=== PATIENT | male | born 1950 | race Caucasian/White ===

== ENCOUNTER 2023-08-01 16:34 | Inpatient (IN) | payer MEDICARE ==
[~2023-08-01 16:34] MED LIST: Dofetilide 0.125 MG CAP PO SCH
[2023-08-01 17:39] LABS: #Basophils 0.1 10x3/uL (0.0-0.2); #Eosinphils 0.2 10x3/uL (0.0-0.5); #Monocytes 0.8 10x3/uL (0.0-1.1); #Neutrophils 8.9 10x3/uL (1.5-8.4); %Basophils 0.8 % (0.0-2.0); %Eosinophils 1.9 % (0.0-6.0); %Lymphocytes 7.5 % (18.0-47.0); %Monocytes 7.3 % (0.0-10.0); %Neutrophils 78.2 % (40.0-75.0); Hematocrit 34.3 % (38.8-50.0); Hemoglobin 11.3 g/dL (13.5-17.5); Mean Corpuscular HGB CONC 32.9 g/dL (32.0-36.0); Mean Corpuscular Hemoglobin 31.1 pg (27.0-33.0); Mean Corpuscular Volume 94.5 fl (81.2-95.1); Mean Platelet Volume 8.7 fl (7.4-10.4); Platelet Count 343 10x3/uL (150-450); RBC Distribution Width 13.5 % (11.5-14.5); Red Blood Cell (RBC) Count 3.63 10x6/uL (4.32-5.72); White Blood Cell (WBC) Count 11.4 10x3/uL (3.5-10.5)
[2023-08-01 17:48] LABS: PTT 34.1 sec (22.0-33.0); Prothrombin Time 11.2 sec (9.5-12.1)
[2023-08-01 17:54] LABS: ALT (SGPT) 19 U/L (8-55); AST (SGOT) 24 U/L (5-34); Albumin 3.9 g/dL (3.4-4.8); Alkaline Phosphatase 89 U/L (40-110); Anion Gap 14 mmol/L (10-20); BUN (Urea Nitrogen) 48 mg/dL (8.4-25.7); Bilirubin, Total 0.2 mg/dL (0.2-1.2); Calc. Creatinine Clearance 0 mL/min (70-130); Calcium 8.5 mg/dL (7.8-10.44); Carbon Dioxide 22 mmol/L (23-31); Chloride 105 mmol/L (98-107); Estimated GFR 38; Globulin 2.8 g/dL (2.4-3.5); Glucose 103 mg/dL (83-110); Potassium 5.1 mmol/L (3.5-5.1); Protein, Total 6.7 g/dL (5.8-8.1); Sodium 136 mmol/L (136-145)
[2023-08-01 18:01] LABS: Troponin I Less than 0.010 ng/mL (< 0.028)
[2023-08-01] MEDS ORDERED: Vancomycin 1 GM VIAL ONE (18:39)
[2023-08-01] MEDS ORDERED: Cefepime 1 GM VIAL ONE (18:39)
[2023-08-01] MEDS ORDERED: HYDROcodone/Acetaminophen 5/325 mg Tablet ONE (18:56)
[2023-08-01] MEDS ORDERED: Cefepime 2 GM VIAL ONE (19:41)
[2023-08-01] MEDS ORDERED: Calcium Carbonate 500 MG ChewTAB PO PRN (20:17)
[2023-08-01] MEDS ORDERED: traZODone HCl 50 MG TAB PO PRN (20:22)
[2023-08-01] MEDS ORDERED: Morphine 4 MG/ML VIAL ONE (21:12)
[2023-08-01] MEDS ORDERED: Enoxaparin 120 MG/0.8 ML SYRINGE SC ONE (23:27)
[2023-08-01] MEDS ORDERED: Morphine 2 MG/ML VIAL ONE (23:28)
[2023-08-02] MEDS ORDERED: HYDROcodone/Acetaminophen 5/325 mg Tablet ONE (03:32)
[2023-08-02] MEDS ORDERED: Dofetilide 0.125 MG CAP PO SCH (03:45)
[2023-08-02 03:55] LABS: #Basophils 0.1 10x3/uL (0.0-0.2); #Eosinphils 0.2 10x3/uL (0.0-0.5); #Monocytes 1.3 10x3/uL (0.0-1.1); #Neutrophils 11.2 10x3/uL (1.5-8.4); %Basophils 0.7 % (0.0-2.0); %Eosinophils 1.3 % (0.0-6.0); %Lymphocytes 5.8 % (18.0-47.0); %Monocytes 9.2 % (0.0-10.0); %Neutrophils 80.4 % (40.0-75.0); Hematocrit 34.1 % (38.8-50.0); Hemoglobin 11.3 g/dL (13.5-17.5); Mean Corpuscular HGB CONC 33.1 g/dL (32.0-36.0); Mean Corpuscular Hemoglobin 31.3 pg (27.0-33.0); Mean Corpuscular Volume 94.5 fl (81.2-95.1); Mean Platelet Volume 8.6 fl (7.4-10.4); Platelet Count 349 10x3/uL (150-450); RBC Distribution Width 13.2 % (11.5-14.5); Red Blood Cell (RBC) Count 3.61 10x6/uL (4.32-5.72); White Blood Cell (WBC) Count 13.9 10x3/uL (3.5-10.5)
[2023-08-02] MEDS: Enoxaparin 120 MG/0.8 ML SYRINGE SC SCH (04:12)
[2023-08-02] MEDS: Sodium Chloride 0.9% 1,000 ML IV SCH (04:12)
[2023-08-02 04:13] LABS: Anion Gap 13 mmol/L (10-20); BUN (Urea Nitrogen) 35 mg/dL (8.4-25.7); Calc. Creatinine Clearance 89 mL/min (70-130); Carbon Dioxide 21 mmol/L (23-31); Chloride 109 mmol/L (98-107); Estimated GFR 58; Glucose 112 mg/dL (83-110); Sodium 138 mmol/L (136-145)
[2023-08-02] MEDS: Morphine 2 MG/ML VIAL SLOW IVP SCH ×2 (04:13→08:42)
[2023-08-02] MEDS: HYDROcodone/Acetaminophen 5/325 mg Tablet PO PRN (04:14)
[2023-08-02] MEDS: Atorvastatin Calcium 20 MG TAB PO SCH ×2 (04:15→21:45)
[2023-08-02 04:21] LABS: CRP (Inflammatory) 6.59 mg/dL (= or < 0.5)
[2023-08-02] MEDS: Dofetilide 0.125 MG CAP PO SCH ×2 (05:55→21:44)
[2023-08-02] MEDS: Levothyroxine Sodium 50 MCG TAB PO SCH (05:55)
[2023-08-02 07:50] VITALS: BMI 41.0
[2023-08-02] MEDS: Carvedilol 3.125 MG TAB PO SCH (08:44)
[2023-08-02] MEDS: Cefepime 2 GM in Sodium Chloride 0.9% 100 ML IVPB SCH (09:11)
[2023-08-02] MEDS: Doxazosin 2 MG TAB PO SCH (09:15)
[2023-08-02] MEDS: Morphine 4 MG/ML VIAL SLOW IVP SCH (09:20)
[2023-08-02] MEDS: Vancomycin 1.5 GRAM/300 ML BAG 1.5 GM in Premix 1 BAG IVPB SCH (10:08)
[2023-08-02] MEDS: Morphine 4 MG/ML VIAL SLOW IVP PRN (11:08)
[2023-08-02] MEDS: Ondansetron PF 4 MG/2 ML Vial IVP PRN (11:08)
[2023-08-02] MEDS: FLU VACC QS2023(65UP)/MF59C/PF 60 MCG/0.5 ML SYRINGE IM ONE (13:34)
[2023-08-03] MEDS: HYDROcodone/Acetaminophen 5/325 mg Tablet PO PRN (02:38)
[2023-08-03 05:25] LABS: #Basophils 0.1 10x3/uL (0.0-0.2); #Eosinphils 0.3 10x3/uL (0.0-0.5); #Monocytes 1.2 10x3/uL (0.0-1.1); #Neutrophils 9.2 10x3/uL (1.5-8.4); %Basophils 0.7 % (0.0-2.0); %Eosinophils 2.4 % (0.0-6.0); %Lymphocytes 9.3 % (18.0-47.0); %Monocytes 10.1 % (0.0-10.0); %Neutrophils 74.6 % (40.0-75.0); Hematocrit 31.5 % (38.8-50.0); Hemoglobin 10.2 g/dL (13.5-17.5); Mean Corpuscular HGB CONC 32.4 g/dL (32.0-36.0); Mean Corpuscular Hemoglobin 30.5 pg (27.0-33.0); Mean Corpuscular Volume 94.3 fl (81.2-95.1); Mean Platelet Volume 8.4 fl (7.4-10.4); Platelet Count 318 10x3/uL (150-450); RBC Distribution Width 13.4 % (11.5-14.5); Red Blood Cell (RBC) Count 3.34 10x6/uL (4.32-5.72); White Blood Cell (WBC) Count 12.3 10x3/uL (3.5-10.5)
[2023-08-03 05:39] LABS: Anion Gap 13 mmol/L (10-20); BUN (Urea Nitrogen) 27 mg/dL (8.4-25.7); Calc. Creatinine Clearance 115 mL/min (70-130); Carbon Dioxide 23 mmol/L (23-31); Chloride 107 mmol/L (98-107); Estimated GFR 79; Glucose 103 mg/dL (83-110); Potassium 4.7 mmol/L (3.5-5.1); Sodium 138 mmol/L (136-145)
[2023-08-03] MEDS ORDERED: Polyethylene Glycol 3350 17 GM Packet PO PRN (09:26)
[2023-08-03] MEDS: Docusate 100 MG CAP PO SCH (20:32)
[2023-08-04] MEDS ORDERED: Lidocaine 2% 6 ML (Jelly) SYR TOP PRN (07:57)
[2023-08-04 08:45] LABS: Vancomycin, Trough 11.8 ug/mL
[2023-08-04] MEDS ORDERED: Apixaban 5 MG TAB PO SCH (09:00)
[2023-08-04] MEDS: Apixaban 5 MG TAB PO SCH (10:05)
[2023-08-04] MEDS: Sacubitril 24MG/Valsartan 26 MG TAB PO SCH (10:06)
[2023-08-04] MEDS ORDERED: Torsemide 20 MG TAB PO SCH (13:00)
[2023-08-05 08:55] LABS: #Basophils 0.1 10x3/uL (0.0-0.2); #Eosinphils 0.6 10x3/uL (0.0-0.5); #Monocytes 0.9 10x3/uL (0.0-1.1); %Basophils 0.8 % (0.0-2.0); %Eosinophils 4.9 % (0.0-6.0); %Lymphocytes 7.1 % (18.0-47.0); %Monocytes 7.3 % (0.0-10.0); Hematocrit 33.5 % (38.8-50.0); Hemoglobin 11.1 g/dL (13.5-17.5); Mean Corpuscular HGB CONC 33.1 g/dL (32.0-36.0); Mean Corpuscular Hemoglobin 31.1 pg (27.0-33.0); Mean Corpuscular Volume 93.8 fl (81.2-95.1); Mean Platelet Volume 8.8 fl (7.4-10.4); Platelet Count 376 10x3/uL (150-450); RBC Distribution Width 13.2 % (11.5-14.5); Red Blood Cell (RBC) Count 3.57 10x6/uL (4.32-5.72)
[2023-08-05 08:56] LABS: ALT (SGPT) 23 U/L (8-55); AST (SGOT) 33 U/L (5-34); Albumin 3.2 g/dL (3.4-4.8); Alkaline Phosphatase 68 U/L (40-110); Anion Gap 11 mmol/L (10-20); BUN (Urea Nitrogen) 20 mg/dL (8.4-25.7); Bilirubin, Total 0.3 mg/dL (0.2-1.2); Calc. Creatinine Clearance 131 mL/min (70-130); Calcium 9.1 mg/dL (7.8-10.44); Carbon Dioxide 26 mmol/L (23-31); Chloride 103 mmol/L (98-107); Estimated GFR 91; Globulin 3.4 g/dL (2.4-3.5); Glucose 96 mg/dL (83-110); Potassium 4.2 mmol/L (3.5-5.1); Protein, Total 6.6 g/dL (5.8-8.1); Sodium 136 mmol/L (136-145)
[2023-08-05] MEDS ORDERED: Mineral Oil PER (1 ML CHG) PO PRN (09:49)
[2023-08-05] MEDS: Torsemide 20 MG TAB PO SCH (09:57)
[2023-08-05] MEDS: Fluticasone Propionate Nasal Spray 16 gm Bottle NASAL SCH (09:59)
[2023-08-05] MEDS: Pseudoephedrine HCl 30 MG TAB PO PRN (10:18)
[2023-08-05] MEDS: Bisacodyl 5 MG TAB PO PRN (14:37)
[2023-08-05] MEDS: Senokot S 8.6-50 MG TAB PO PRN (14:37)
[2023-08-05] MEDS: Acetaminophen 325 MG TAB PO PRN (17:12)
[2023-08-06 03:51] LABS: Anion Gap 14 mmol/L (10-20); BUN (Urea Nitrogen) 26 mg/dL (8.4-25.7); Calc. Creatinine Clearance 106 mL/min (70-130); Calcium 8.9 mg/dL (7.8-10.44); Carbon Dioxide 26 mmol/L (23-31); Chloride 101 mmol/L (98-107); Estimated GFR 72; Glucose 111 mg/dL (83-110); Potassium 4.1 mmol/L (3.5-5.1); Sodium 137 mmol/L (136-145)
[2023-08-06 09:05] LABS: Vancomycin, Trough 16.8 ug/mL
[2023-08-06] MEDS: VANCOMYCIN 1.25 GM/250 ML BAG 1.25 GM in Premix 1 BAG IVPB SCH (11:20)
[2023-08-06] MEDS ORDERED: Bisacodyl 10 MG SUPP PR PRN (16:56)
[2023-08-06] MEDS: Milk Of Magnesia 30 ML UDCUP PO SCH (18:57)
[2023-08-06] MEDS: Dofetilide 0.25 MG CAP PO SCH (21:00)
[2023-08-06] MEDS: Methocarbamol 500 MG TAB PO SCH (21:01)
[2023-08-06] MEDS: traZODone HCl 50 MG TAB PO SCH (21:02)
[2023-08-07 04:18] LABS: Anion Gap 15 mmol/L (10-20); BUN (Urea Nitrogen) 33 mg/dL (8.4-25.7); Calc. Creatinine Clearance 96 mL/min (70-130); Calcium 8.9 mg/dL (7.8-10.44); Carbon Dioxide 26 mmol/L (23-31); Chloride 101 mmol/L (98-107); Estimated GFR 64; Glucose 108 mg/dL (83-110); Magnesium 2.1 mg/dL (1.6-2.6); Sodium 138 mmol/L (136-145)
[2023-08-07 04:23] LABS: #Basophils 0.1 10x3/uL (0.0-0.2); #Eosinphils 0.6 10x3/uL (0.0-0.5); #Neutrophils 10.1 10x3/uL (1.5-8.4); %Basophils 0.8 % (0.0-2.0); %Eosinophils 4.7 % (0.0-6.0); %Monocytes 7.6 % (0.0-10.0); %Neutrophils 76.2 % (40.0-75.0); Hematocrit 32.7 % (38.8-50.0); Hemoglobin 11.2 g/dL (13.5-17.5); Mean Corpuscular HGB CONC 34.3 g/dL (32.0-36.0); Mean Corpuscular Hemoglobin 31.8 pg (27.0-33.0); Mean Corpuscular Volume 92.9 fl (81.2-95.1); Mean Platelet Volume 8.9 fl (7.4-10.4); Platelet Count 418 10x3/uL (150-450); RBC Distribution Width 13.2 % (11.5-14.5); Red Blood Cell (RBC) Count 3.52 10x6/uL (4.32-5.72); White Blood Cell (WBC) Count 13.3 10x3/uL (3.5-10.5)
[2023-08-07 04:52] LABS: ALT (SGPT) 21 U/L (8-55); AST (SGOT) 26 U/L (5-34); Albumin 3.2 g/dL (3.4-4.8); Alkaline Phosphatase 81 U/L (40-110); Bilirubin, Direct 0.1 mg/dL (0.1-0.3); Bilirubin, Total 0.2 mg/dL (0.2-1.2); Protein, Total 6.6 g/dL (5.8-8.1)
[2023-08-07] MEDS: Doxazosin 2 MG TAB PO SCH (08:48)
[2023-08-08 04:07] LABS: #Basophils 0.1 10x3/uL (0.0-0.2); #Eosinphils 0.6 10x3/uL (0.0-0.5); #Neutrophils 9.7 10x3/uL (1.5-8.4); %Basophils 0.8 % (0.0-2.0); %Eosinophils 4.9 % (0.0-6.0); %Lymphocytes 8.1 % (18.0-47.0); %Monocytes 7.9 % (0.0-10.0); %Neutrophils 76.4 % (40.0-75.0); Hematocrit 32.2 % (38.8-50.0); Hemoglobin 10.6 g/dL (13.5-17.5); Mean Corpuscular HGB CONC 32.9 g/dL (32.0-36.0); Mean Corpuscular Volume 94.2 fl (81.2-95.1); Platelet Count 424 10x3/uL (150-450); RBC Distribution Width 13.3 % (11.5-14.5); Red Blood Cell (RBC) Count 3.42 10x6/uL (4.32-5.72); White Blood Cell (WBC) Count 12.7 10x3/uL (3.5-10.5)
[2023-08-08 04:09] LABS: Anion Gap 13 mmol/L (10-20); BUN (Urea Nitrogen) 41 mg/dL (8.4-25.7); Calc. Creatinine Clearance 80 mL/min (70-130); Calcium 8.9 mg/dL (7.8-10.44); Carbon Dioxide 27 mmol/L (23-31); Chloride 101 mmol/L (98-107); Estimated GFR 52; Glucose 112 mg/dL (83-110); Magnesium 2.2 mg/dL (1.6-2.6); Potassium 3.9 mmol/L (3.5-5.1); Sodium 137 mmol/L (136-145)
[2023-08-08 08:28] LABS: Vancomycin, Trough 20.2 ug/mL
[2023-08-08] MEDS ORDERED: Vancomycin 1 GM in Sodium Chloride 0.9% 250 ML 250 ML IVPB SCH (15:00)
[2023-08-08] MEDS: Amoxicillin/Potassium Clav 875 MG TAB PO SCH (21:59)
[2023-08-09 04:25] LABS: #Basophils 0.1 10x3/uL (0.0-0.2); #Eosinphils 0.7 10x3/uL (0.0-0.5); #Neutrophils 7.4 10x3/uL (1.5-8.4); %Basophils 0.9 % (0.0-2.0); %Eosinophils 6.6 % (0.0-6.0); %Lymphocytes 10.6 % (18.0-47.0); %Monocytes 9.7 % (0.0-10.0); %Neutrophils 70.1 % (40.0-75.0); Hematocrit 32.1 % (38.8-50.0); Hemoglobin 10.5 g/dL (13.5-17.5); Mean Corpuscular HGB CONC 32.7 g/dL (32.0-36.0); Mean Corpuscular Hemoglobin 30.6 pg (27.0-33.0); Mean Corpuscular Volume 93.6 fl (81.2-95.1); Mean Platelet Volume 8.8 fl (7.4-10.4); Platelet Count 421 10x3/uL (150-450); RBC Distribution Width 13.1 % (11.5-14.5); Red Blood Cell (RBC) Count 3.43 10x6/uL (4.32-5.72); White Blood Cell (WBC) Count 10.6 10x3/uL (3.5-10.5)
[2023-08-09 04:38] LABS: Anion Gap 13 mmol/L (10-20); BUN (Urea Nitrogen) 40 mg/dL (8.4-25.7); Calc. Creatinine Clearance 89 mL/min (70-130); Calcium 9.3 mg/dL (7.8-10.44); Carbon Dioxide 27 mmol/L (23-31); Chloride 101 mmol/L (98-107); Estimated GFR 58; Glucose 107 mg/dL (83-110); Magnesium 2.1 mg/dL (1.6-2.6); Potassium 3.9 mmol/L (3.5-5.1); Sodium 137 mmol/L (136-145)
[2023-08-09 08:39] VITALS: TEMP 98.1
[2023-08-09 13:17] VITALS: BP 122/73
== END 2023-08-09 14:22 | DRG 872 ==
LOC: CSHERS 16:34 → CSHERHOLD 20:17 → CSHICU 08-02 08:15 → CSHTELE 08-03 00:41
PROVIDERS: ADMIT Student in an Organized Health Care Education/Training Program; ATTEND Family Medicine
DX: A41.9 Sepsis, unspecified organism (principal); L03.116 Cellulitis of left lower limb; N17.9 Acute kidney failure, unspecified; Z68.41 Body mass index [BMI] 40.0-44.9, adult; I50.32 Chronic diastolic (congestive) heart failure; L03.115 Cellulitis of right lower limb; E78.5 Hyperlipidemia, unspecified; I48.0 Paroxysmal atrial fibrillation; E03.9 Hypothyroidism, unspecified; N40.0 Benign prostatic hyperplasia without lower urinary tract symptoms; F43.10 Post-traumatic stress disorder, unspecified; F41.9 Anxiety disorder, unspecified; F31.9 Bipolar disorder, unspecified; G89.29 Other chronic pain; R53.81 Other malaise; J44.9 Chronic obstructive pulmonary disease, unspecified; N40.1 Benign prostatic hyperplasia with lower urinary tract symptoms; R33.8 Other retention of urine; I87.8 Other specified disorders of veins; I11.0 Hypertensive heart disease with heart failure; E66.01 Morbid (severe) obesity due to excess calories; Z98.890 Other specified postprocedural states; Z99.3 Dependence on wheelchair
CPT/HCPCS: 36415; 36416; 80048; 80053; 80076; 80202; 82565; 82607; 83036; 83605; 83735; 83880; 84443; 84484; 84520; 85025; 85610; 85730; 86140; 87040; 93005; 93306; 93923; 93970; 96365; 96367; 96375; 97139; J0692; J1650; J2270; J2272; J2405; J3370; J3490; J7050; J8499